=== PATIENT | female | born 1960 | race Caucasian/White ===

== ENCOUNTER → 2017-10-23 | Outpatient (CLI) | payer OTHER | END | disposition home or self-care (01) | LOC: KCIC US 12:41 | DX: E04.9 Nontoxic goiter, unspecified (principal) | CPT/HCPCS: 76536 ==

== ENCOUNTER → 2017-11-23 | Outpatient (CLI) | payer OTHER ==
[2017-11-23 11:07] LABS: BARBITURATES NEG (NEG); BENZODIAZEPINES NEG (NEG); CANNABINOIDS NEG (NEG); COCAINE NEG (NEG); METHADONE NEG (NEG); OPIATES NEG (NEG); PHENCYCLIDINE NEG (NEG)
[2017-11-23 11:12] LABS: AMPHETAMINE/METHAMPHETAMINE NEG (NEG); ETHANOL, URINE NEG (NEG)
[2017-11-23 11:22] LABS: FREE T4 0.97 ng/dL (0.76-1.46)
[2017-11-23 12:21] LABS: VITAMIN-B12 486 pg/mL (247-911)
[2017-11-24 01:18] LABS: THYROXINE 8.3 ug/dL (4.5-12.0)
== END | disposition home or self-care (01) ==
LOC: RT 09:26
DX: R41.3 Other amnesia (principal); E55.9 Vitamin D deficiency, unspecified; E04.9 Nontoxic goiter, unspecified; R13.10 Dysphagia, unspecified
CPT/HCPCS: 36415; 80307; 82306; 82607; 84436; 84439; 84481; 95816

== ENCOUNTER → 2017-11-28 | Outpatient (CLI) | payer OTHER ==
[2017-11-28] MEDS: ZOLPIDEM 5 MG TABLET. PO (21:00)
[2017-11-29] MEDS: ZOLPIDEM 5 MG TABLET. PO (00:07)
== END | disposition home or self-care (01) ==
LOC: RT 18:25
DX: R53.83 Other fatigue (principal); R79.89 Other specified abnormal findings of blood chemistry; E55.9 Vitamin D deficiency, unspecified
CPT/HCPCS: 95810

== ENCOUNTER → 2021-04-28 | Outpatient (CLI) | payer BC ==
--- NOTE | 2021-04-29 21:00 | SLEEP ---
DATE OF STUDY: 04/28/2021 SLEEP STUDY REFERRING PHYSICIAN: Analia Hart MD The patient is a 60-year-old who weighs 229 pounds with a BMI of 38. The patient's [place] score was 17. The patient underwent a sleep study performed at [facility]. During the night study, the patient spent 420 minutes in bed and slept for 247 minutes with a sleep efficiency of 59%, which is low. Sleep latency was 93 minutes. REM latency was 324 minutes. Sleep architecture showed increased stage I sleep, normal stage II sleep, absent slow wave and reduced REM sleep, which is 5% of total sleep time. During the night study, the patient had no obstructive apneas, mixed apneas or central apneas. The patient had no hypopneas. The patient's AHI was 0 per hour during the entire night. PLMS were seen at index of 12 per hour and 2 per hour caused EEG arousals. EKG monitoring revealed an average heart rate of 78 beats per minute. No sustained arrhythmias observed. Nocturnal oximetry revealed no significant desaturation of less than 89%. Due to low AHI, the patient did not meet the split night criteria for CPAP initiation. IMPRESSION: 1. No clinically significant sleep disordered breathing. The patient's AHI for the entire night was 0 per hour. 2. Reduced sleep efficiency resulting from sleep onset and sleep maintenance insomnia. The patient's sleep efficiency was 59%. 3. Mild periodic limb movements. RECOMMENDATIONS: 1. The patient did not meet the split night criteria for CPAP initiation. 2. The patient has subjective hypersomnia with an [place] score of 17. If the patient has chronic insomnia, then it could contribute to the patient's daytime symptoms. If clinical suspicion for other disorders such as narcolepsy is high, then the patient will require multiple sleep latency test. 3. Weight loss is strongly advised. 4. Avoid GLASSBLOWER depressants. 5. Cautioned regarding driving until the patient's hypersomnia is resolved. LEISA DR: Moose TID: [id number] CC: ANALIA HART MD
== END ==
LOC: SLPLAB 18:42
PROVIDERS: ATTEND Family Medicine
DX: G47.00 Insomnia, unspecified (principal); G47.61 Periodic limb movement disorder; R40.0 Somnolence
CPT/HCPCS: 95810